=== PATIENT | female | born 1960 | race Two or more races ===

== ENCOUNTER 2017-10-16 23:27 | Emergency (ER) | payer BC, MEDICAID ==
[~2017-10-16] VITALS: Ht 162.6 cm; Wt 81.6 kg
[2017-10-16] MEDS ORDERED: TRAZ-144 PO (23:37)
[2017-10-16] MEDS ORDERED: SERT25TA PO (23:37)
[2017-10-16] MEDS ORDERED: PARO20TA51 PO (23:37)
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
[2017-10-17 00:02] LABS: BASOPHILS # (AUTO) 0.1 K/uL (0.0-8.0); BASOPHILS % (AUTO) 0.9 % (0.0-2.0); EOSINOPHILS # (AUTO) 0.2 K/uL (0.0-0.7); EOSINOPHILS % (AUTO) 2.2 % (0.0-7.0); HEMATOCRIT 43.9 % (31.2-41.9); HEMOGLOBIN 15.1 g/dL (10.9-14.3); LYMPHOCYTES # (AUTO) 3.4 K/uL (20.0-40.0); MEAN CORPUSCULAR HEMOGLOBIN 31.2 uug (24.7-32.8); MEAN CORPUSCULAR HGB CONC 34 g/dL (32.3-35.6); MEAN CORPUSCULAR VOLUME 90.7 fL (75.5-95.3); MONOCYTES # (AUTO) 0.3 K/uL (2.0-10.0); MONOCYTES % (AUTO) 3.6 % (0.0-11.0); NEUTROPHILS # (AUTO) 5.2 K/uL (1.8-8.9); NEUTROPHILS % (AUTO) 56.3 % (38.5-71.5); PLATELET COUNT (AUTO) 355 K/uL (179-408); RED BLOOD CELL COUNT(AUTO) 4.84 MIL/uL (3.63-4.92); WHITE BLOOD COUNT (AUTO) 9.2 K/uL (3.8-11.8)
[2017-10-17 00:13] LABS: ETHANOL 230 MG/DL (0-0)
[2017-10-17 00:21] LABS: *AMPHETAMINE, URINE NEGATIVE (NEGATIVE); *BARBITURATE, URINE NEGATIVE (NEGATIVE); *CANNABINOID, URINE NEGATIVE (NEGATIVE); *COCCAINE, URINE NEGATIVE (NEGATIVE); *OPIATE, URINE NEGATIVE (NEGATIVE); *PHENCYCLIDINE SCREEN,URINE NEGATIVE (NEGATIVE)
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
[2017-10-17 00:32] LABS: *BILIRUBIN,URIN NEGATIVE (NEGATIVE); *BLOOD, URINE Trace-lysed (NEGATIVE); *CLARITY,URINE CLEAR (CLEAR); *COLOR,URINE LIGHT YELLOW (YELLOW); *KETONES,URINE NEGATIVE (NEGATIVE); *PROTEIN,URINE TRACE (NEGATIVE); *UROBILINOGEN,URINE 0.2 E.U./dl (NORMAL); LEUKOCYTE ESTERASE ,URINE TRACE (NEGATIVE); NITRITE, URINE NEGATIVE (NEGATIVE); PH,URINE 5.5 (5.0-8.0); UGLUCOSE NEGATIVE (NEGATIVE)
[2017-10-17 00:40] LABS: THYROID STIMULATING HORMONE 1.748 mIU/mL (0.358-3.740)
[2017-10-17] MEDS ORDERED: ALPRAZOLAM 0.25 MG TABLET PO ONE (00:45)
[2017-10-17] MEDS ORDERED: ALPRAZOLAM 0.5 MG TABLET ONE (00:54)
[2017-10-17 00:56] LABS: *URINE HCG, QUAL NEGATIVE (NEGATIVE)
[2017-10-17 01:06] LABS: BACTERIA,URINE NONE SEEN /HPF (NONE SEEN); RBC,URINE 0-3 /HPF (0-3); SQUAMOUS EPITHELIAL CELL,UR FEW /HPF (NONE SEEN); WBC,URINE 0-3 /HPF (0-3)
[2017-10-17 01:39] LABS: ALANINE AMINOTRANSFERASE 30 U/L (14-59); ALKALINE PHOSPHATASE 177 U/L (50-136); ASPARTATE AMINOTRANSFERASE 26 U/L (15-37); BILIRUBIN,DIRECT 0.1 mg/dL (0.0-0.2); BILIRUBIN,TOTAL 0.1 mg/dL (0.2-1.0); CARBON DIOXIDE 17 mmol/L (21-32); CHLORIDE 109 mmol/L (98-107); CREATININE 0.8 mg/dL (0.6-1.3); GLUCOSE 154 mg/dL (74-106); POTASSIUM 3.6 mmol/L (3.5-5.1); UREA NITROGEN, BLOOD 10 mg/dL (7-18)
--- NOTE | 2017-10-17 02:17 | NUR ---
Patient medically cleared per ERMD, too intoxicated at this time per ETOH level for crisis evaluation, will contact WEATHER OBSERVER in AM for evaluation.
--- NOTE | 2017-10-17 03:02 | NUR ---
Patient is resting comfortably in bed with eyes closed
[2017-10-17 03:29] LABS: ACETAMINOPHEN < 2.0 ug/mL (10-30)
--- NOTE | 2017-10-17 04:00 | NUR ---
Patient is resting comfortably in bed with eyes closed
--- NOTE | 2017-10-17 04:43 | NUR ---
Patient is resting comfortably in bed with eyes closed
--- NOTE | 2017-10-17 05:25 | NUR ---
Patient is resting comfortably in bed with eyes closed
--- NOTE | 2017-10-17 05:29 | NUR ---
Laboratory at bedside for repeat ETOH draw.
--- NOTE | 2017-10-17 07:25 | NUR ---
Patient is sleeping, breathing well. Arouses to touch.
--- NOTE | 2017-10-17 08:20 | NUR ---
Patient has not verbalized any intent to harm herself. States she want to go home. awaiting for assessment from crisis team. All precautions in place.
--- NOTE | 2017-10-17 08:25 | NUR ---
patient is awake. She is alert and oriented x4. I gave her a breakfast tray (with no knife). CHAI Reyes is on his way for eval.
--- NOTE | 2017-10-17 08:44 | NUR ---
Patient ambulated to bathroom with steady gait.
--- NOTE | 2017-10-17 09:23 | NUR ---
Carlos Alberto french sow manager, here to see patient.
--- NOTE | 2017-10-17 11:52 | NUR ---
PATIENT ATE LUNCH. SHE STATES "I NEED TO STOP MY ALCOHOL DRINKING BECAUSE I CANT STOP AT JUST ONE DRINK" STATES "SHIMA ONLY DRANK LIKE THAT 4 TIMES THIS YEAR, IM NOT AN ALCOOLIC AND I DONT HAVE AN ALCOHOL PROBLEM". STATES SHE SEES HER PHYSCIATRIST REGULARLY FOR BIPOLAR. HER RELATIVE IS PICKING HER UP NOW FROM THE HOSPITAL. DC AND FOLLOW UP INSTRUCTIONS GIVEN AND EXPLAINED TO PATIENT WHO STATES SHE UNDERSTANDS ALL INSTRUCTIONS.
[2017-10-17 11:55] VITALS: BP 138/80
== END 2017-10-17 11:56 | disposition home or self-care (01) ==
LOC: ER 23:32
DX: F32.9 Major depressive disorder, single episode, unspecified (principal); F10.10 Alcohol abuse, uncomplicated
CPT/HCPCS: 36415 ×2; 70450; 71010; 80048; 80076; 80307; 81001; 82140; 84443; 84484; 84703; 85025; 85730; 93005; 99285; A4663; G0480 ×3; G0481; 70030-TC

== ENCOUNTER 2024-09-12 17:01 | Inpatient (IN) | payer BC, MEDICAID ==
[~2024-09-12] VITALS: Ht 162.6 cm; Wt 108.9 kg
[~2024-09-12 17:01] MED LIST: PARO-142 PO; SERT25TA PO; TRAZ-182 PO
[2024-09-12] MEDS ORDERED: HYDROMORPHONE 2 MG/1 ML DISP.SYRIN ONE (17:37)
[2024-09-12] MEDS: HYDROMORPHONE 1 MG/1 ML DISP.SYRIN IM ONE ×2 (17:38→21:46)
[2024-09-12] MEDS: ONDANSETRON ODT 4 MG TAB.RAPDIS SL ONE (17:39)
[2024-09-12] MEDS ORDERED: ONDANSETRON ODT 4 MG TAB.RAPDIS ONE (17:41)
[2024-09-12] MEDS ORDERED: GABA1TAB3 (17:44)
[2024-09-12] MEDS ORDERED: BUSP30TA2 PO (17:44)
[2024-09-12] MEDS ORDERED: QUET100T32 PO (17:44)
[2024-09-12] MEDS ORDERED: PROP10TA68 PO (17:44)
[2024-09-12] MEDS ORDERED: LOSA50TA39 PO (17:44)
[2024-09-12] MEDS ORDERED: ARIP20TA20 PO (17:44)
[2024-09-12] MEDS ORDERED: FLUO20CA42 PO (17:44)
[2024-09-12 18:21] LABS: BASOPHILS # (AUTO) 0.4 K/UL (0.0-0.2); BASOPHILS % (AUTO) 2.7 % (0.0-2.0); EOSINOPHILS # (AUTO) 0.1 K/uL (0.0-0.7); EOSINOPHILS % (AUTO) 0.5 % (0.0-7.0); HEMATOCRIT 44.1 % (31.2-41.9); LYMPHOCYTES # (AUTO) 3.3 K/uL (0.8-4.8); LYMPHOCYTES % (AUTO) 20.9 % (20.5-51.5); MEAN CORPUSCULAR HEMOGLOBIN 29.5 uug (24.7-32.8); MEAN CORPUSCULAR HGB CONC 34 g/dL (32.3-35.6); MONOCYTES # (AUTO) 0.4 K/uL (0.1-1.30); MONOCYTES % (AUTO) 2.7 % (0.0-11.0); NEUTROPHILS # (AUTO) 11.7 K/uL (1.8-8.9); NEUTROPHILS % (AUTO) 73.2 % (38.5-71.5); PLATELET COUNT (AUTO) 436 K/uL (179-408); RED BLOOD CELL COUNT(AUTO) 5.07 MIL/uL (3.63-4.92); RED CELL DISTRIBUTION WIDTH 15.4 % (12.3-17.7)
[2024-09-12 18:22] LABS: DIFFERENTIAL COMMENT 1
[2024-09-12 18:35] LABS: ALBUMIN 2.7 g/dL (3.4-5.0); BILIRUBIN,DIRECT 0.1 mg/dL (0.0-0.2); BILIRUBIN,TOTAL 0.4 mg/dL (0.2-1.0); CALCIUM 6.7 mg/dL (8.5-10.1); CREATININE 0.9 mg/dL (0.6-1.3); TOTAL PROTEIN, SERUM 7.6 g/dL (6.4-8.2)
[2024-09-12 18:43] LABS: MAGNESIUM 2.5 mg/dL (1.8-2.4)
[2024-09-12 19:15] LABS: *BILIRUBIN,URIN NEGATIVE (NEGATIVE); *BLOOD, URINE 2+ (NEGATIVE); *COLOR,URINE YELLOW (YELLOW); *KETONES,URINE 1+ (NEGATIVE); *PROTEIN,URINE NEGATIVE (NEGATIVE); *UROBILINOGEN,URINE 0.2 E.U./dl (NORMAL); LEUKOCYTE ESTERASE ,URINE 2+ (NEGATIVE); NITRITE, URINE POSITIVE (NEGATIVE); PH,URINE 5.5 (5.0-8.0); UGLUCOSE NEGATIVE (NEGATIVE)
[2024-09-12 19:20] LABS: *CLARITY,URINE SLIGHTLY CLOUDY (CLEAR)
[2024-09-12] MEDS ORDERED: CHOLECALCIFEROL 1,000 UNIT TABLET ONE (19:23)
[2024-09-12] MEDS ORDERED: CALCIUM GLUCONATE 1 GM/10 ML VIAL IV ONE (19:23)
[2024-09-12] MEDS: CHOLECALCIFEROL 1,000 UNIT TABLET PO SCH (19:40)
[2024-09-12 19:54] LABS: BACTERIA,URINE MANY /HPF (NONE SEEN); SQUAMOUS EPITHELIAL CELL,UR FEW /HPF (NONE SEEN); WBC,URINE 50-80 /HPF (0-3)
[2024-09-12] MEDS ORDERED: HYDROMORPHONE 1 MG/1 ML DISP.SYRIN ONE (21:40)
[2024-09-12] MEDS ORDERED: REMEDY ESSENTIAL ZINC PASTE 113 GM TP PRN (22:15)
[2024-09-12] MEDS ORDERED: ONDANSETRON 4 MG/2 ML VIAL IV PRN (22:15)
[2024-09-12] MEDS ORDERED: CEFTRIAXONE /D5W 50ML IVPB **ER PYXIS IV ONE (22:28)
[2024-09-12] MEDS: CEFTRIAXONE 1 G in IV DEXTROSE 5% 50 ML IV ONE (22:30)
[2024-09-12] MEDS ORDERED: SODIUM BICARBONATE 8.4% 50 MEQ/50 ML DISP.SYRIN IV ONE (22:35)
[2024-09-12] MEDS: CALCIUM GLUCONATE IV 2 GM in IV NORMAL SALINE 100 ML IV ONE (23:00)
[2024-09-13] MEDS ORDERED: SODIUM BICARBONATE 8.4% 50 MEQ/50 ML DISP.SYRIN IV ONE
[2024-09-13] MEDS: SODIUM BICARBONATE 8.4% 50 MEQ in IV NS 1000 ML 1,000 ML IV PRN (00:02)
[2024-09-13] MEDS ORDERED: ENOXAPARIN SODIUM 40 MG/0.4 ML DISP.SYRIN SQ ONE (01:08)
[2024-09-13] MEDS ORDERED: MORPHINE SULFATE 4 MG/1 ML DISP.SYRIN ONE (01:08)
[2024-09-13] MEDS: ENOXAPARIN SODIUM 40 MG/0.4 ML DISP.SYRIN SQ SCH (01:09)
[2024-09-13] MEDS: MORPHINE SULFATE 4 MG/1 ML DISP.SYRIN IV ONE (01:10)
[2024-09-13 02:15] VITALS: BP 145/52; TEMP 98.4; O2SAT 98
[2024-09-13] MEDS: IV LACTATED RINGERS SOLUTION 1,000 ML IV SCH (02:45)
[2024-09-13 05:00] VITALS: BP 135/57; TEMP 98.6; O2SAT 98
[2024-09-13] MEDS: PANTOPRAZOLE SODIUM 40 MG TABLET.DR PO SCH (06:07)
[2024-09-13] MEDS: IV LACTATED RINGERS SOLUTION 1,000 ML IV PRN (06:09)
[2024-09-13 06:38] LABS: BASOPHILS # (AUTO) 0.1 K/UL (0.0-0.2); BASOPHILS % (AUTO) 0.9 % (0.0-2.0); EOSINOPHILS # (AUTO) 0.2 K/uL (0.0-0.7); EOSINOPHILS % (AUTO) 1.9 % (0.0-7.0); HEMATOCRIT 39.7 % (31.2-41.9); HEMOGLOBIN 13.7 g/dL (10.9-14.3); LYMPHOCYTES # (AUTO) 2.1 K/uL (0.8-4.8); LYMPHOCYTES % (AUTO) 18.7 % (20.5-51.5); MEAN CORPUSCULAR HEMOGLOBIN 29.8 uug (24.7-32.8); MEAN CORPUSCULAR HGB CONC 35 g/dL (32.3-35.6); MEAN CORPUSCULAR VOLUME 86.6 fL (75.5-95.3); MONOCYTES # (AUTO) 0.5 K/uL (0.1-1.30); MONOCYTES % (AUTO) 4.8 % (0.0-11.0); NEUTROPHILS # (AUTO) 8.1 K/uL (1.8-8.9); NEUTROPHILS % (AUTO) 73.7 % (38.5-71.5); PLATELET COUNT (AUTO) 382 K/uL (179-408); RED BLOOD CELL COUNT(AUTO) 4.58 MIL/uL (3.63-4.92); RED CELL DISTRIBUTION WIDTH 15.5 % (12.3-17.7); WHITE BLOOD COUNT (AUTO) 11.1 K/uL (3.8-11.8)
[2024-09-13] MEDS: MORPHINE SULFATE 4 MG/1 ML DISP.SYRIN IV PRN (06:54)
[2024-09-13 07:06] LABS: ALBUMIN 2.9 g/dL (3.4-5.0); BILIRUBIN,TOTAL 0.5 mg/dL (0.2-1.0); CALCIUM 9.2 mg/dL (8.5-10.1); CREATININE 0.7 mg/dL (0.6-1.3); POTASSIUM 3.4 mmol/L (3.5-5.1)
[2024-09-13 07:07] LABS: DIFFERENTIAL COMMENT 1
[2024-09-13 07:16] LABS: THYROID STIMULATING HORMONE 2.772 mIU/mL (0.358-3.740)
[2024-09-13 08:00] VITALS: BP 140/54; TEMP 98.6; O2SAT 95
[2024-09-13] MEDS ORDERED: GABA300C PO (08:52)
[2024-09-13] MEDS ORDERED: LOVA40TA2 PO (09:41)
[2024-09-13] MEDS ORDERED: METF-440 PO (09:41)
[2024-09-13] MEDS: POTASSIUM CHLORIDE 20 MEQ TAB.PRT.SR PO ONE (09:50)
[2024-09-13 12:10] VITALS: BP 137/55; TEMP 99.6; O2SAT 94
[2024-09-13 16:00] VITALS: BP 150/54; TEMP 99; O2SAT 92
[2024-09-13] MEDS: PROPRANOLOL HCL 10 MG TABLET PO SCH (16:37)
[2024-09-13] MEDS: busPIRone 10 MG TABLET PO SCH (16:37)
[2024-09-13] MEDS: GABAPENTIN 300 MG CAPSULE PO SCH (16:38)
[2024-09-13 19:45] VITALS: BP 138/69; O2SAT 93
[2024-09-13] MEDS ORDERED: CEFTRIAXONE 1 G in IV DEXTROSE 5% 50 ML IV SCH (20:00)
[2024-09-13] MEDS: TRAZODONE 50 MG TABLET PO SCH (20:48)
[2024-09-13] MEDS: CEFTRIAXONE 2 G in IV DEXTROSE 5% 100 ML IV SCH (20:48)
[2024-09-14] MEDS: ACETAMINOPHEN 325 MG TABLET PO PRN (01:28)
[2024-09-14 05:53] VITALS: BP 118/46; TEMP 98.5; O2SAT 95
[2024-09-14 07:12] LABS: CALCIUM 8.3 mg/dL (8.5-10.1); CREATININE 0.5 mg/dL (0.6-1.3)
[2024-09-14 07:40] LABS: POTASSIUM 3.7 mmol/L (3.5-5.1)
[2024-09-14] MEDS: LOSARTAN POTASSIUM 50 MG TABLET PO SCH (08:25)
[2024-09-14] MEDS: FLUOXETINE HCL 20 MG CAPSULE PO SCH (08:26)
[2024-09-14] MEDS: ENOXAPARIN SODIUM 40 MG/0.4 ML DISP.SYRIN SQ SCH (08:26)
[2024-09-14 10:01] LABS: CALCIUM 8.6 mg/dL (8.5-10.1); CREATININE 0.5 mg/dL (0.6-1.3)
[2024-09-14 10:44] LABS: POTASSIUM 3.9 mmol/L (3.5-5.1)
[2024-09-14] MEDS: BISACODYL 10 MG SUPP.RECT RC ONE (11:12)
[2024-09-14 12:00] VITALS: BP 122/53; TEMP 98.3; O2SAT 93
[2024-09-14 15:43] VITALS: BP 138/62; TEMP 98.7; O2SAT 99
[2024-09-14 20:00] VITALS: BP 144/47; TEMP 98.4; O2SAT 93
[2024-09-15 06:00] VITALS: BP 153/71; TEMP 98.2; O2SAT 96
[2024-09-15 07:09] LABS: BASOPHILS # (AUTO) 0.1 K/UL (0.0-0.2); EOSINOPHILS # (AUTO) 0.2 K/uL (0.0-0.7); EOSINOPHILS % (AUTO) 2.7 % (0.0-7.0); HEMATOCRIT 33.8 % (31.2-41.9); HEMOGLOBIN 11.6 g/dL (10.9-14.3); LYMPHOCYTES # (AUTO) 2.6 K/uL (0.8-4.8); LYMPHOCYTES % (AUTO) 29.8 % (20.5-51.5); MEAN CORPUSCULAR HGB CONC 34 g/dL (32.3-35.6); MEAN CORPUSCULAR VOLUME 87.6 fL (75.5-95.3); MONOCYTES # (AUTO) 0.5 K/uL (0.1-1.30); MONOCYTES % (AUTO) 5.5 % (0.0-11.0); NEUTROPHILS # (AUTO) 5.3 K/uL (1.8-8.9); PLATELET COUNT (AUTO) 304 K/uL (179-408); RED BLOOD CELL COUNT(AUTO) 3.86 MIL/uL (3.63-4.92); RED CELL DISTRIBUTION WIDTH 14.9 % (12.3-17.7); WHITE BLOOD COUNT (AUTO) 8.6 K/uL (3.8-11.8)
[2024-09-15 07:33] LABS: DIFFERENTIAL COMMENT 1
[2024-09-15 08:00] VITALS: BP 138/50; TEMP 98.5; O2SAT 95
[2024-09-15 08:12] LABS: CALCIUM 8.2 mg/dL (8.5-10.1); CREATININE 0.5 mg/dL (0.6-1.3); PHOSPHOROUS 3.2 mg/dL (2.5-4.9)
[2024-09-15 08:29] LABS: MAGNESIUM 1.9 mg/dL (1.8-2.4)
[2024-09-15 08:54] LABS: POTASSIUM 3.6 mmol/L (3.5-5.1)
[2024-09-15 12:14] VITALS: BP 136/53; TEMP 98.4; O2SAT 96
== END 2024-09-15 14:30 | disposition home or self-care (01) | DRG 351 ==
LOC: ER 17:01 → MEDSURG3 09-13 01:38
PROVIDERS: ADMIT Nurse Practitioner Acute Care; ATTEND Nurse Practitioner Acute Care
PROC: 05H933Z Insertion of Infusion Device into Right Brachial Vein, Percutaneous Approach (ICD-10-PCS; principal; 2024-09-13)
DX: M62.82 Rhabdomyolysis (principal); E11.40 Type 2 diabetes mellitus with diabetic neuropathy, unspecified; E88.09 Other disorders of plasma-protein metabolism, not elsewhere classified; E86.0 Dehydration; E66.01 Morbid (severe) obesity due to excess calories; D72.828 Other elevated white blood cell count; N39.0 Urinary tract infection, site not specified; T43.595A Adverse effect of other antipsychotics and neuroleptics, initial encounter; T46.6X5A Adverse effect of antihyperlipidemic and antiarteriosclerotic drugs, initial encounter; Y92.039 Unspecified place in apartment as the place of occurrence of the external cause; Z66 Do not resuscitate; Z68.41 Body mass index [BMI] 40.0-44.9, adult; G40.909 Epilepsy, unspecified, not intractable, without status epilepticus; M79.89 Other specified soft tissue disorders; F31.9 Bipolar disorder, unspecified; E87.6 Hypokalemia; R74.01 Elevation of levels of liver transaminase levels; Z91.81 History of falling; I10 Essential (primary) hypertension; Z79.899 Other long term (current) drug therapy; K59.00 Constipation, unspecified; R00.0 Tachycardia, unspecified; R06.02 Shortness of breath
CPT/HCPCS: 36415; 70450; 72131; 83605; 83735; 84100; 84443; 85025; 85730; 87040; 93005; A4606; A4663; C1758; G0378; J0610; J0696; J1171; J1650; J2270; J3490; J7040; J7120; Q0162

== ENCOUNTER 2024-10-29 21:15 | Emergency (ER) | payer MEDICAID ==
[~2024-10-29] VITALS: Ht 162.6 cm; Wt 99.8 kg
[~2024-10-29 21:15] MED LIST changes: +BUSP30TA2 PO; +FLUO20CA42 PO; +GABA300C PO; +LOSA50TA39 PO; -PARO-142 PO; +PROP10TA68 PO; -SERT25TA PO
[2024-10-29] MEDS ORDERED: ONDANSETRON 4 MG/2 ML VIAL ONE (21:46)
[2024-10-29] MEDS ORDERED: MORPHINE SULFATE 2 MG/1 ML DISP.SYRIN ONE (21:47)
[2024-10-29] MEDS: ONDANSETRON 4 MG/2 ML VIAL IV ONE (21:48)
[2024-10-29] MEDS: MORPHINE SULFATE 2 MG/1 ML DISP.SYRIN IV ONE (21:49)
[2024-10-29 21:52] LABS: BASOPHILS # (AUTO) 0.1 K/UL (0.0-0.2); BASOPHILS % (AUTO) 1.2 % (0.0-2.0); EOSINOPHILS # (AUTO) 0.2 K/uL (0.0-0.7); EOSINOPHILS % (AUTO) 2.4 % (0.0-7.0); HEMATOCRIT 42.7 % (31.2-41.9); HEMOGLOBIN 14.3 g/dL (10.9-14.3); LYMPHOCYTES # (AUTO) 2.8 K/uL (0.8-4.8); LYMPHOCYTES % (AUTO) 31.3 % (20.5-51.5); MEAN CORPUSCULAR HEMOGLOBIN 29.6 uug (24.7-32.8); MEAN CORPUSCULAR HGB CONC 34 g/dL (32.3-35.6); MEAN CORPUSCULAR VOLUME 88.4 fL (75.5-95.3); MONOCYTES # (AUTO) 0.4 K/uL (0.1-1.30); MONOCYTES % (AUTO) 3.9 % (0.0-11.0); NEUTROPHILS # (AUTO) 5.6 K/uL (1.8-8.9); NEUTROPHILS % (AUTO) 61.2 % (38.5-71.5); PLATELET COUNT (AUTO) 395 K/uL (179-408); RED BLOOD CELL COUNT(AUTO) 4.83 MIL/uL (3.63-4.92); RED CELL DISTRIBUTION WIDTH 14.9 % (12.3-17.7); WHITE BLOOD COUNT (AUTO) 9.1 K/uL (3.8-11.8)
[2024-10-29 21:55] LABS: DIFFERENTIAL COMMENT 1
[2024-10-29 22:04] LABS: CALCIUM 9.4 mg/dL (8.5-10.1); CARBON DIOXIDE 26 mmol/L (21-32); CHLORIDE 102 mmol/L (98-107); CREATININE 0.7 mg/dL (0.6-1.3); GLUCOSE 111 mg/dL (74-106); POTASSIUM 4.1 mmol/L (3.5-5.1); SODIUM SERUM 138 mmol/L (136-145); UREA NITROGEN, BLOOD 15 mg/dL (7-18)
[2024-10-29 22:07] LABS: ETHANOL < 3 MG/DL (0-10)
[2024-10-29 22:18] LABS: ALANINE AMINOTRANSFERASE 19 U/L (14-59); ALBUMIN 3.2 g/dL (3.4-5.0); ALKALINE PHOSPHATASE 151 U/L (50-136); ASPARTATE AMINOTRANSFERASE 17 U/L (15-37); BILIRUBIN,TOTAL 0.2 mg/dL (0.2-1.0); CREATINE KINASE, TOTAL 31 U/L (26-192); NT-PRO BNP 65 pg/mL (0-125); TOTAL PROTEIN, SERUM 7.9 g/dL (6.4-8.2)
[2024-10-30] MEDS ORDERED: KETOROLAC TROMETHAMINE 30 MG INJ ONE (01:46)
[2024-10-30] MEDS: KETOROLAC TROMETHAMINE 30 MG INJ IM ONE (01:49)
[2024-10-30 02:14] VITALS: BP 116/99; O2SAT 99
== END 2024-10-30 02:15 | disposition home or self-care (01) ==
LOC: ER 21:15
DX: R51.9 Headache, unspecified (principal); R42 Dizziness and giddiness; F31.9 Bipolar disorder, unspecified; F41.9 Anxiety disorder, unspecified; G40.909 Epilepsy, unspecified, not intractable, without status epilepticus; Z79.899 Other long term (current) drug therapy
CPT/HCPCS: 80053; 82550; 83880; 85025; 84484; 36415; 71045; 70450; 72125; 93005; 99285; 96374; 96375; 80320; 96372; J2405; J2270; J1885; A4606; A4663; G0480

== ENCOUNTER 2025-05-13 14:35 | Emergency (ER) | payer MEDICAID ==
[~2025-05-13] VITALS: Ht 162.6 cm; Wt 88.5 kg
[2025-05-13 15:20] LABS: PLATELET COUNT (AUTO) 347 K/uL (179-408); RED BLOOD CELL COUNT(AUTO) 5.48 MIL/uL (3.63-4.92); RED CELL DISTRIBUTION WIDTH 14.7 % (12.3-17.7); WHITE BLOOD COUNT (AUTO) 8.3 K/uL (3.8-11.8)
[2025-05-13] MEDS: IV NORMAL SALINE 1000 ML BAG IV ONE (15:26)
[2025-05-13 15:27] LABS: CREATININE 0.5 mg/dL (0.6-1.3); SODIUM SERUM 141.0 mmol/L (136-145); UREA NITROGEN, BLOOD 14.0 mg/dL (7-18)
[2025-05-13] MEDS ORDERED: METOCLOPRAMIDE HCL 10 MG/2 ML VIAL ONE (15:29)
[2025-05-13 15:33] LABS: ASPARTATE AMINOTRANSFERASE 14.0 U/L (15-37); TOTAL PROTEIN, SERUM 7.3 g/dL (6.4-8.2)
[2025-05-13] MEDS ORDERED: MORPHINE SULFATE 2 MG/1 ML DISP.SYRIN ONE (15:36)
[2025-05-13] MEDS: METOCLOPRAMIDE HCL 10 MG/2 ML VIAL IV ONE (15:40)
[2025-05-13] MEDS: MORPHINE SULFATE 2 MG/1 ML DISP.SYRIN IV ONE (15:40)
[2025-05-13 15:57] LABS: *BILIRUBIN,URIN 1+ (NEGATIVE); *BLOOD, URINE NEGATIVE (NEGATIVE); *CLARITY,URINE CLEAR (CLEAR); *KETONES,URINE TRACE (NEGATIVE); *PROTEIN,URINE 2+ (NEGATIVE); *UROBILINOGEN,URINE 1.0 E.U./dl (NORMAL); LEUKOCYTE ESTERASE ,URINE NEGATIVE (NEGATIVE); NITRITE, URINE NEGATIVE (NEGATIVE); UGLUCOSE NEGATIVE (NEGATIVE)
[2025-05-13 16:00] LABS: *COLOR,URINE DARK YELLOW (YELLOW)
[2025-05-13 16:07] LABS: SQUAMOUS EPITHELIAL CELL,UR MODERATE /HPF (NONE SEEN)
[2025-05-13] MEDS ORDERED: METO-295 PO (16:52)
[2025-05-13] MEDS ORDERED: DIPH1TAB PO (16:52)
[2025-05-13 17:32] VITALS: BP 120/67; O2SAT 99
== END 2025-05-13 16:59 | disposition home or self-care (01) ==
LOC: ER 14:35
DX: K52.9 Noninfective gastroenteritis and colitis, unspecified (principal); F31.9 Bipolar disorder, unspecified; F41.9 Anxiety disorder, unspecified; G40.909 Epilepsy, unspecified, not intractable, without status epilepticus; Z79.899 Other long term (current) drug therapy; Z86.79 Personal history of other diseases of the circulatory system; Z87.19 Personal history of other diseases of the digestive system; Z87.39 Personal history of other diseases of the musculoskeletal system and connective tissue
CPT/HCPCS: 99284; 96374; 96361; 96375; 80053; 81001; 83690; 85025; 36415; J2765; J2270; J7040; A4606; A4663

== ENCOUNTER 2025-05-28 18:56 | Inpatient (IN) | payer MEDICAID ==
[~2025-05-28] VITALS: Ht 162.6 cm; Wt 89.8 kg
[~2025-05-28 18:56] MED LIST changes: +DIPH1TAB PO; +METO-295 PO
[2025-05-28 19:34] LABS: PLATELET COUNT (AUTO) 374 K/uL (179-408); RED BLOOD CELL COUNT(AUTO) 5.51 MIL/uL (3.63-4.92); RED CELL DISTRIBUTION WIDTH 14.8 % (12.3-17.7); WHITE BLOOD COUNT (AUTO) 17.9 K/uL (3.8-11.8)
[2025-05-28 19:54] LABS: CREATININE 0.9 mg/dL (0.6-1.3); SODIUM SERUM 136.0 mmol/L (136-145); UREA NITROGEN, BLOOD 13.0 mg/dL (7-18)
[2025-05-28 19:55] LABS: ASPARTATE AMINOTRANSFERASE 6.0 U/L (15-37); TOTAL PROTEIN, SERUM 6.7 g/dL (6.4-8.2)
[2025-05-28 20:02] LABS: LACTIC ACID 2.2 mmol/L (0.4-2.0)
[2025-05-28] MEDS: IV NS 1000 ML 1,000 ML IV ONE (20:26)
[2025-05-28] MEDS ORDERED: KETOROLAC TROMETHAMINE 30 MG INJ ONE (20:38)
[2025-05-28 20:46] LABS: ETHANOL < 3 MG/DL (0-10)
[2025-05-28] MEDS: KETOROLAC TROMETHAMINE 30 MG INJ IVP ONE (20:58)
[2025-05-28 22:41] LABS: *BILIRUBIN,URIN NEGATIVE (NEGATIVE); *BLOOD, URINE NEGATIVE (NEGATIVE); *CLARITY,URINE CLEAR (CLEAR); *COLOR,URINE YELLOW (YELLOW); *KETONES,URINE NEGATIVE (NEGATIVE); *PROTEIN,URINE NEGATIVE (NEGATIVE); *UROBILINOGEN,URINE 0.2 E.U./dl (NORMAL); LEUKOCYTE ESTERASE ,URINE NEGATIVE (NEGATIVE); NITRITE, URINE NEGATIVE (NEGATIVE); UGLUCOSE NEGATIVE (NEGATIVE)
[2025-05-28 22:53] LABS: *AMPHETAMINE, URINE NEGATIVE (NEGATIVE); *BARBITURATE, URINE NEGATIVE (NEGATIVE); *BENZODIAZEPINE, URINE NEGATIVE (NEGATIVE); *CANNABINOID, URINE NEGATIVE (NEGATIVE); *COCCAINE, URINE NEGATIVE (NEGATIVE); *OPIATE, URINE NEGATIVE (NEGATIVE); *PHENCYCLIDINE SCREEN,URINE NEGATIVE (NEGATIVE); FENTANYL, URINE NEGATIVE (NEGATIVE)
[2025-05-28] MEDS ORDERED: KETO10TA2 PO (23:07)
[2025-05-28 23:21] LABS: PLATELET COUNT (AUTO) 387 K/uL (179-408); RED BLOOD CELL COUNT(AUTO) 5.23 MIL/uL (3.63-4.92); RED CELL DISTRIBUTION WIDTH 14.6 % (12.3-17.7); WHITE BLOOD COUNT (AUTO) 15.3 K/uL (3.8-11.8)
[2025-05-28] MEDS ORDERED: ONDANSETRON 4 MG/2 ML VIAL ONE (23:28)
[2025-05-28] MEDS ORDERED: MORPHINE SULFATE 2 MG/1 ML DISP.SYRIN ONE (23:28)
[2025-05-28] MEDS: ONDANSETRON 4 MG/2 ML VIAL IV ONE (23:36)
[2025-05-28] MEDS: MORPHINE SULFATE 2 MG/1 ML DISP.SYRIN IV ONE (23:36)
[2025-05-29] MEDS ORDERED: ONDANSETRON 4 MG/2 ML VIAL IV PRN (02:00)
[2025-05-29] MEDS ORDERED: ACETAMINOPHEN 325 MG TABLET PO PRN (02:00)
[2025-05-29] MEDS: MAGNESIUM HYDROXIDE 30 ML LIQUID UDC PO PRN (03:11)
[2025-05-29] MEDS: ENOXAPARIN SODIUM 40 MG/0.4 ML DISP.SYRIN SQ SCH (03:13)
[2025-05-29] MEDS: MORPHINE SULFATE 2 MG/1 ML DISP.SYRIN IM PRN (03:51)
[2025-05-29 04:43] VITALS: BP 128/45; TEMP 98.1; O2SAT 96
[2025-05-29] MEDS ORDERED: diphenhydrAMINE 25 MG CAP PO PRN (05:15)
[2025-05-29] MEDS: PANTOPRAZOLE SODIUM 40 MG TABLET.DR PO SCH (06:18)
[2025-05-29 06:50] LABS: PLATELET COUNT (AUTO) 386 K/uL (179-408); RED BLOOD CELL COUNT(AUTO) 5.18 MIL/uL (3.63-4.92); RED CELL DISTRIBUTION WIDTH 14.4 % (12.3-17.7); WHITE BLOOD COUNT (AUTO) 11.0 K/uL (3.8-11.8)
[2025-05-29 07:03] LABS: CREATININE 0.8 mg/dL (0.6-1.3); SODIUM SERUM 140.0 mmol/L (136-145); UREA NITROGEN, BLOOD 24.0 mg/dL (7-18)
[2025-05-29 07:17] VITALS: BP 106/58; TEMP 97.8; O2SAT 96
[2025-05-29 11:17] VITALS: BP 135/43; TEMP 98.8; O2SAT 98
[2025-05-29] MEDS ORDERED: PRED10TA PO (12:01)
[2025-05-29] MEDS ORDERED: HYDR200T4 PO (12:01)
[2025-05-29] MEDS ORDERED: DIPHENOXYLATE HCL/ATROP SULF TABLET PO PRN (12:45)
[2025-05-29] MEDS: CLOPIDOGREL 75 MG TABLET PO SCH (13:47)
[2025-05-29] MEDS: ASPIRIN EC 81 MG TABLET.DR PO SCH (13:47)
[2025-05-29 15:32] VITALS: BP 101/42; TEMP 98.5; O2SAT 97
[2025-05-29] MEDS: HYDROXYCHLOROQUINE SULFATE 200 MG TABLET PO SCH (16:49)
[2025-05-29] MEDS: GABAPENTIN 300 MG CAPSULE PO SCH (16:49)
[2025-05-29 19:00] VITALS: BP 131/57; TEMP 98.2; O2SAT 95
[2025-05-29] MEDS ORDERED: IOHEXOL 350 100 ML INFUS..BTL ONE (19:36)
[2025-05-29] MEDS: ATORVASTATIN 40 MG TABLET PO SCH (20:20)
[2025-05-29] MEDS: TEMAZEPAM 15 MG CAPSULE PO PRN (20:21)
[2025-05-30 06:00] VITALS: BP 120/44; TEMP 97.9; O2SAT 99
[2025-05-30 07:12] LABS: CREATININE 0.6 mg/dL (0.6-1.3); SODIUM SERUM 141.0 mmol/L (136-145); UREA NITROGEN, BLOOD 11.0 mg/dL (7-18)
[2025-05-30 07:22] LABS: PLATELET COUNT (AUTO) 364 K/uL (179-408); RED BLOOD CELL COUNT(AUTO) 4.70 MIL/uL (3.63-4.92); RED CELL DISTRIBUTION WIDTH 14.9 % (12.3-17.7); WHITE BLOOD COUNT (AUTO) 9.9 K/uL (3.8-11.8)
[2025-05-30] MEDS: LOSARTAN POTASSIUM 50 MG TABLET PO SCH (08:23)
[2025-05-30 10:59] VITALS: BP 103/45; TEMP 98.4; O2SAT 98
[2025-05-30 14:59] VITALS: BP 130/51; TEMP 98.7; O2SAT 99
[2025-05-30 19:00] VITALS: BP 125/43; TEMP 98.1; O2SAT 96
[2025-05-31 06:55] VITALS: BP 115/44; TEMP 97.6; O2SAT 95
[2025-05-31 11:45] VITALS: BP 104/47; TEMP 98.4; O2SAT 96
[2025-05-31 14:57] VITALS: BP 119/44; TEMP 98.3; O2SAT 98
== END 2025-05-31 17:00 | disposition home or self-care (01) | DRG 47 ==
LOC: ER 19:01 → TELE3 05-29 01:37 → MEDSURG3 05-29 10:10
PROVIDERS: ADMIT Nurse Practitioner Family; ATTEND Nurse Practitioner Acute Care
PROC: 05H933Z Insertion of Infusion Device into Right Brachial Vein, Percutaneous Approach (ICD-10-PCS; principal; 2025-05-29)
DX: G45.9 Transient cerebral ischemic attack, unspecified (principal); I67.1 Cerebral aneurysm, nonruptured; M32.9 Systemic lupus erythematosus, unspecified; E11.65 Type 2 diabetes mellitus with hyperglycemia; E66.9 Obesity, unspecified; D72.829 Elevated white blood cell count, unspecified; F17.200 Nicotine dependence, unspecified, uncomplicated; F31.9 Bipolar disorder, unspecified; R47.1 Dysarthria and anarthria; G40.909 Epilepsy, unspecified, not intractable, without status epilepticus; Z66 Do not resuscitate; R94.8 Abnormal results of function studies of other organs and systems; I10 Essential (primary) hypertension; Z79.899 Other long term (current) drug therapy; Z68.34 Body mass index [BMI] 34.0-34.9, adult; I25.10 Atherosclerotic heart disease of native coronary artery without angina pectoris; G47.00 Insomnia, unspecified; R79.89 Other specified abnormal findings of blood chemistry; R91.1 Solitary pulmonary nodule; Z79.52 Long term (current) use of systemic steroids; R94.6 Abnormal results of thyroid function studies; R53.1 Weakness; F41.9 Anxiety disorder, unspecified; Z91.81 History of falling; Z79.82 Long term (current) use of aspirin; Z79.02 Long term (current) use of antithrombotics/antiplatelets; R26.9 Unspecified abnormalities of gait and mobility
CPT/HCPCS: 36415; 70450; 70496; 71045; 71250; 83605; 83735; 84100; 84443; 84484; 85025; 87040; 93307; A4606; A4663; G0378; G0480; J1650; J1885; J2270; J2405; J7040; J7512; Q9967

== ENCOUNTER 2025-07-17 19:16 | Emergency (ER) | payer MEDICAID ==
[~2025-07-17] VITALS: Ht 162.6 cm; Wt 99.8 kg
[~2025-07-17 19:16] MED LIST changes: -BUSP30TA2 PO; -FLUO20CA42 PO; +HYDR200T4 PO; -METO-295 PO; +PRED10TA PO; -PROP10TA68 PO; -TRAZ-182 PO
[2025-07-17 19:25] VITALS: BP 142/114
[2025-07-17] MEDS ORDERED: KETOROLAC TROMETHAMINE 30 MG INJ ONE (21:19)
[2025-07-17] MEDS ORDERED: ONDANSETRON 4 MG/2 ML VIAL ONE (21:19)
[2025-07-17 21:25] LABS: PLATELET COUNT (AUTO) 389 K/uL (179-408); RED BLOOD CELL COUNT(AUTO) 4.87 MIL/uL (3.63-4.92); RED CELL DISTRIBUTION WIDTH 14.7 % (12.3-17.7); WHITE BLOOD COUNT (AUTO) 8.8 K/uL (3.8-11.8)
[2025-07-17 21:31] LABS: CREATININE 0.6 mg/dL (0.6-1.3); SODIUM SERUM 136.0 mmol/L (136-145); UREA NITROGEN, BLOOD 8.0 mg/dL (7-18)
[2025-07-17] MEDS: KETOROLAC TROMETHAMINE 30 MG INJ IVP ONE (21:36)
[2025-07-17] MEDS: IV NS 1000 ML 1,000 ML IV ONE (21:36)
[2025-07-17] MEDS: ONDANSETRON 4 MG/2 ML VIAL IV ONE (21:36)
[2025-07-17 21:37] LABS: ASPARTATE AMINOTRANSFERASE 8.0 U/L (15-37); CREATINE KINASE, TOTAL 37.0 U/L (26-192); TOTAL PROTEIN, SERUM 7.1 g/dL (6.4-8.2)
[2025-07-17 22:16] LABS: *BILIRUBIN,URIN NEGATIVE (NEGATIVE); *BLOOD, URINE NEGATIVE (NEGATIVE); *CLARITY,URINE SLIGHTLY CLOUDY (CLEAR); *COLOR,URINE YELLOW (YELLOW); *KETONES,URINE NEGATIVE (NEGATIVE); *PROTEIN,URINE 2+ (NEGATIVE); *UROBILINOGEN,URINE 0.2 E.U./dl (NORMAL); LEUKOCYTE ESTERASE ,URINE NEGATIVE (NEGATIVE); NITRITE, URINE NEGATIVE (NEGATIVE); UGLUCOSE NEGATIVE (NEGATIVE)
[2025-07-17 22:25] LABS: SQUAMOUS EPITHELIAL CELL,UR MODERATE /HPF (NONE SEEN)
[2025-07-17] MEDS ORDERED: HYDR-4209 PO (22:53)
[2025-07-17] MEDS ORDERED: LIDOCAINE VISCUS 2% 15 ML UDC ONE (23:01)
[2025-07-17] MEDS ORDERED: HYDROCODONE/APAP 5-325MG TABLET ONE (23:01)
[2025-07-17] MEDS: HYDROCODONE/APAP 5-325MG TABLET PO ONE (23:03)
[2025-07-17] MEDS: LIDOCAINE VISCUS 2% 15 ML UDC MM ONE (23:03)
[2025-07-17 23:17] VITALS: BP 136/99; O2SAT 99
== END 2025-07-17 23:18 | disposition home or self-care (01) ==
LOC: ER 19:55
DX: K14.4 Atrophy of tongue papillae (principal); B34.9 Viral infection, unspecified; R03.0 Elevated blood-pressure reading, without diagnosis of hypertension; F31.9 Bipolar disorder, unspecified; G40.909 Epilepsy, unspecified, not intractable, without status epilepticus; I51.9 Heart disease, unspecified; K14.6 Glossodynia; N93.9 Abnormal uterine and vaginal bleeding, unspecified; Z79.52 Long term (current) use of systemic steroids; Z79.899 Other long term (current) drug therapy; Z20.822 Contact with and (suspected) exposure to COVID-19
CPT/HCPCS: 99285; 96374; 71045; 96361; 96375; 87426; 80053; 81001; 82550; 85025; 87086; 84484; 36415; 93005; J1885; J2405; J7040; A4606; A4663

== ENCOUNTER 2025-08-03 09:45 | Emergency (ER) | payer MEDICAID ==
[~2025-08-03] VITALS: Ht 162.6 cm; Wt 90.7 kg
[2025-08-03 10:08] VITALS: BP 125/71; O2SAT 95
[2025-08-03] MEDS ORDERED: ACETAMINOPHEN 500 MG TABLET ONE (10:53)
[2025-08-03] MEDS ORDERED: OXYCODONE/APAP 5-325 MG TABLET ONE (10:54)
[2025-08-03] MEDS ORDERED: IBUPROFEN 200 MG TABLET ONE (10:54)
[2025-08-03] MEDS: OXYCODONE/APAP 5-325 MG TABLET PO ONE (10:59)
[2025-08-03] MEDS: ACETAMINOPHEN 500 MG TABLET PO ONE (10:59)
[2025-08-03] MEDS: IBUPROFEN 200 MG TABLET PO ONE (10:59)
[2025-08-03] MEDS ORDERED: KETOROLAC TROMETHAMINE 30 MG INJ ONE (11:00)
[2025-08-03] MEDS: KETOROLAC TROMETHAMINE 30 MG INJ IM ONE (11:05)
== END 2025-08-03 11:12 | disposition left against medical advice (07) ==
LOC: ER 09:45
DX: S70.01XA Contusion of right hip, initial encounter (principal); G40.909 Epilepsy, unspecified, not intractable, without status epilepticus; F31.9 Bipolar disorder, unspecified; I11.9 Hypertensive heart disease without heart failure; I25.10 Atherosclerotic heart disease of native coronary artery without angina pectoris; Z79.52 Long term (current) use of systemic steroids; Z79.899 Other long term (current) drug therapy; R29.6 Repeated falls; W19.XXXA Unspecified fall, initial encounter; Y93.89 Activity, other specified; Y92.89 Other specified places as the place of occurrence of the external cause; Y99.8 Other external cause status
CPT/HCPCS: 99283; 73551; 96372; J1885; A4606; A4663; A9150